=== PATIENT | male | born 1995 | race American Indian/Alaskan Native ===

== ENCOUNTER 2021-05-10 13:47 | Emergency (ER) | payer OTHER ==
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
[2021-05-10] MEDS: Diphtheria,Pertussis(Acell),Tetanus Vaccine 0.5 ML Syringe IM ONE (15:05)
== END 2021-05-10 14:45 ==
LOC: VM.ED 13:47
DX: T75.4XXA Electrocution, initial encounter (principal); S00.05XA Superficial foreign body of scalp, initial encounter; S21.131A Puncture wound without foreign body of right front wall of thorax without penetration into thoracic cavity, initial encounter; Z91.030 Bee allergy status; W26.8XXA Contact with other sharp object(s), not elsewhere classified, initial encounter; Y92.410 Unspecified street and highway as the place of occurrence of the external cause
CPT/HCPCS: 99283; 99284